=== PATIENT | male | born 1965 | race Caucasian/White ===

== ENCOUNTER 2017-08-18 20:19 | Emergency (ER) | payer MEDICARE, OTHER ==
[2017-08-19 00:32] LABS: CALCIUM 8.4 mg/dL (8.5-10.1); CARBON DIOXIDE 23.3 mmol/L (21-32); CHLORIDE SERUM 102 mmol/L (98-107); CREATININE SERUM 1.2 mg/dL (0.7-1.3); GFR1 > 60 mL/min; GLUCOSE SERUM 338 mg/dL (74-106); POTASSIUM SERUM 3.8 mmol/L (3.5-5.1); SODIUM SERUM 133 mmol/L (136-145)
[2017-08-19 00:37] LABS: BASOPHIL % 0.3 % (0-2); PLATELET COUNT 172 x10^3mcL (130-400)
[2017-08-19 00:47] LABS: ALKALINE PHOSPHATASE 79 U/L (46-116); ALT/SGPT 25 U/L (16-63); AST/SGOT 15 U/L (15-37); BILIRUBIN TOTAL 0.4 mg/dL (0.20-1.00); LIPASE 125 IU/L (73-393); TOTAL PROTEIN, SERUM 6.5 g/dL (6.4-8.2)
[2017-08-19 04:05] VITALS: BP 134/74
== END 2017-08-19 04:05 | disposition home or self-care (01) ==
LOC: ED 20:19
PROVIDERS: Emergency Medicine
DX: R10.11 Right upper quadrant pain (principal); J44.1 Chronic obstructive pulmonary disease with (acute) exacerbation; E11.65 Type 2 diabetes mellitus with hyperglycemia; I10 Essential (primary) hypertension
CPT/HCPCS: 82962; J1200; J2270; J2405; J2930; J7030; J7613; J7644; Q9967

== ENCOUNTER 2018-07-19 14:35 | Emergency (ER) | payer OTHER ==
[~2018-07-19] VITALS: Ht 172.7 cm; Wt 86.6 kg
[2018-07-19 14:52] VITALS: Ht 172.7 cm; Wt 86.6 kg
[2018-07-19 17:39] VITALS: BP 163/98
== END 2018-07-19 17:39 | disposition home or self-care (01) ==
LOC: ED 14:35
DX: M77.9 Enthesopathy, unspecified (principal); R07.89 Other chest pain; I10 Essential (primary) hypertension; E11.9 Type 2 diabetes mellitus without complications

== ENCOUNTER 2018-08-09 18:17 | Emergency (ER) | payer OTHER ==
[~2018-08-09] VITALS: Ht 172.7 cm; Wt 88.9 kg
[2018-08-09 18:25] VITALS: Ht 172.7 cm; Wt 88.9 kg
[2018-08-09 19:08] LABS: CALCIUM 7.9 mg/dL (8.5-10.1); CHLORIDE SERUM 107 mmol/L (98-107); GFR1 > 60 mL/min; GLUCOSE SERUM 219 mg/dL (74-106); SODIUM SERUM 140 mmol/L (136-145)
[2018-08-09 19:14] LABS: ALKALINE PHOSPHATASE 54 U/L (46-116); ALT/SGPT 22 U/L (16-63); AST/SGOT 12 U/L (15-37); BILIRUBIN TOTAL 0.2 mg/dL (0.20-1.00); LIPASE 129 IU/L (73-393)
[2018-08-09 19:17] LABS: ALBUMIN 2.9 g/dL (3.4-5.0); TOTAL PROTEIN, SERUM 6.1 g/dL (6.4-8.2)
[2018-08-09 19:18] LABS: BASOPHIL % 0.4 % (0-2); PLATELET COUNT 188 x10^3mcL (130-400); RED CELL DISTRIBUTION WIDTH 13.1 % (11.5-14.5)
[2018-08-09 20:06] VITALS: BP 133/67
[2018-08-09 20:14] LABS: UA SPECIFIC GRAVITY 1.025 (1.005-1.035); microscopic required? YES; urine erythrocyte 1+ (NEGATIVE)
== END 2018-08-09 20:06 | disposition home or self-care (01) ==
LOC: ED 18:17
PROVIDERS: Emergency Medicine
DX: R10.31 Right lower quadrant pain (principal); M54.6 Pain in thoracic spine; E11.9 Type 2 diabetes mellitus without complications; I10 Essential (primary) hypertension; F17.210 Nicotine dependence, cigarettes, uncomplicated; Z99.2 Dependence on renal dialysis
CPT/HCPCS: J1885; Q0092

== ENCOUNTER 2019-12-08 14:05 | Emergency (ER) | payer OTHER ==
[~2019-12-08] VITALS: Ht 172.7 cm; Wt 68.0 kg
[2019-12-08 14:12] VITALS: Ht 172.7 cm; Wt 68.0 kg
[2019-12-08 16:17] VITALS: BP 164/91
== END 2019-12-08 16:17 | disposition home or self-care (01) ==
LOC: ED 14:05
DX: S43.401A Unspecified sprain of right shoulder joint, initial encounter (principal); S50.01XA Contusion of right elbow, initial encounter; I10 Essential (primary) hypertension; E11.9 Type 2 diabetes mellitus without complications; R55 Syncope and collapse; Z76.0 Encounter for issue of repeat prescription; W18.30XA Fall on same level, unspecified, initial encounter; Y93.89 Activity, other specified; Y92.89 Other specified places as the place of occurrence of the external cause; Y99.8 Other external cause status